=== PATIENT | female | born 1955 | race Caucasian/White ===

== ENCOUNTER → 2021-01-05 | Outpatient (CLI) | payer OTHER ==
[~2021-01-05] MED LIST: ADDERALL 20 MG20 MG PO; ADULT LOW DOSE81 MG PO; AMARYL2 MG PO; ANTIOBIOTIC PO; ASPIRIN EC81 M1 PO; ATIVAN0.5 MG PO; AVALIDE 150-121 EACH PO; AVALIDE 300-121 EACH PO; CELEXA PO; CELEXA40 MG PO; CINNAMON; CIPRO500 MG PO; CITALOPRAM HBR40 MG PO; CLEOCIN HCL150 MG PO; COQ-10100 MG PO; COZAAR 25 MG TA25 M1 PO; COZAAR 25MG TAB25 MG PO; CYCLOBENZAPRINE PO; CYCLOBENZAPRINE5 MG PO; ESTRACE0.5 MG PO; ESTRACE1 MG PO; FISHOIL; FLEXERIL PO; GABAPENTIN; GLIMEPIRIDE4 MG PO; GLUCOPHAGE XR500 MG PO; GLUMETZA1000 PO; HYDROCODON-ACE1 EAC7 PO; HYDROCODONE-AP1 EA11 PO; HYDROXYZINE HCL25 M2 PO; IBUPROFEN 400400 M1 PO; JANUVIA 50 MG T50 MG PO; JANUVIA100 MG PO; KEFLEX500 MG PO; LIPITOR PO; LOPRESSOR; LORAZEPAM 1 MG T1 MG PO; LOSARTAN POTAS100 MG PO; LOSARTAN-HCTZ1 EAC1 PO; MULTIVITAMINS PO; NEURONTIN 300300 M1 PO; NEURONTIN300 MG PO; OMEGA-31000 M1 PO; ONE-DAILY MULT1 EAC1 PO; OXYCODON-ACETA1 EAC1 PO; OXYCODONE20 MG/1 M1 PO; PEPTO-BISMOL262 M1 PO; PERCOCET 7.5-51 EACH PO; PRAVACHOL40 MG PO; PRILOSEC 20 MG20 MG PO; PROZAC 20 MG20 M1 PO; RELAFEN500 MG PO; TOPROL XL25 MG PO; VITAMIN D1000 UNI1 PO; VITAMIN D325 MC4 PO; [UNRECOGNIZED DRUG - OTHER]
== END ==
LOC: LAB 01-04 12:42
PROVIDERS: Student in an Organized Health Care Education/Training Program; ATTEND Internal Medicine Gastroenterology
DX: Z01.812 Encounter for preprocedural laboratory examination (principal); Z20.822 Contact with and (suspected) exposure to COVID-19

== ENCOUNTER → 2021-01-09 | Outpatient (CLI) | payer OTHER ==
[~2021-01-09] VITALS: Ht 154.9 cm; Wt 74.8 kg
== END | disposition home or self-care (01) ==
LOC: GI
PROVIDERS: ATTEND Internal Medicine Gastroenterology
DX: Z12.11 Encounter for screening for malignant neoplasm of colon (principal); K64.8 Other hemorrhoids; I10 Essential (primary) hypertension; E78.00 Pure hypercholesterolemia, unspecified; E11.9 Type 2 diabetes mellitus without complications; J43.9 Emphysema, unspecified; K21.9 Gastro-esophageal reflux disease without esophagitis; F32.9 Major depressive disorder, single episode, unspecified; F41.9 Anxiety disorder, unspecified; F17.210 Nicotine dependence, cigarettes, uncomplicated; Z98.890 Other specified postprocedural states; Z79.899 Other long term (current) drug therapy; Z86.73 Personal history of transient ischemic attack (TIA), and cerebral infarction without residual deficits; Z90.710 Acquired absence of both cervix and uterus; Z91.040 Latex allergy status
CPT/HCPCS: 62110; 62900